=== PATIENT | female | born 1970 | race Caucasian/White ===

== ENCOUNTER 2023-09-28 13:50 | Emergency (ER) | payer BC, MEDICAID ==
[2023-09-28 14:27] LABS: APPEARANCE,URINE TURBID (CLEAR); BILIRUBIN,URINE NEGATIVE (NEGATIVE); COLOR,URINE RED (YELLOW); GLUCOSE,URINE NEGATIVE (NEGATIVE); KETONES,URINE NEGATIVE (NEGATIVE); LEUKOCYTE ESTERASE,URINE NEGATIVE (NEGATIVE); NITRITE,URINE NEGATIVE (NEGATIVE); PROTEIN,URINE >=300 mg/dL (NEGATIVE); UROBILINOGEN,URINE 0.2 EU/dL (0.2-1.0)
[2023-09-28 14:30] LABS: AMORPHOUS SEDIMENT,URINE NOT SEEN; BACTERIA,URINE MODERATE; EPITHELIAL CELLS,URINE FEW; MUCUS,URINE NOT SEEN; OCCULT BLOOD,URINE LARGE (NEGATIVE); RBC,URINE PACKED (0-5)
== END 2023-09-28 14:57 | disposition home or self-care (01) ==
LOC: JP.ED 13:50
DX: N39.0 Urinary tract infection, site not specified (principal)
CPT/HCPCS: 81001; 87086; 87088; 87186; 99283

== ENCOUNTER 2025-01-06 17:03 | Emergency (ER) | payer MEDICAID ==
[2025-01-06 17:25] LABS: APPEARANCE,URINE CLOUDY (CLEAR); GLUCOSE,URINE NEGATIVE (NEGATIVE); OCCULT BLOOD,URINE LARGE (NEGATIVE)
[2025-01-06 17:32] LABS: SQUAMOUS EPITHELIAL CELLS,UR FEW /HPF; UROTHELIAL CELLS,URINE NOT SEEN /HPF
== END 2025-01-06 18:03 | disposition home or self-care (01) ==
LOC: JP.ED 17:03
DX: N39.0 Urinary tract infection, site not specified (principal)
CPT/HCPCS: 81001; 87086; 99283